=== PATIENT | female | born 1975 | race Caucasian/White ===

== ENCOUNTER 2017-12-16 19:01 | Emergency (ER) | payer MEDICARE, MEDICAID ==
--- NOTE | 2017-12-16 19:31 | ED Physician Chart ---
ED Chief Complaint/HPI - Patient Information Date Seen:: 12/16/17 Time Seen:: 19:29 Chief Complaint:: Weight loss History of Present Illness:: 42 yo obese female with history of schizophrenia was brought from [facility] to ER for evaluation of weight loss for 40 lbs over 2 months. The patient was lying in bed comfortably constantly talking with word salad. Allergies:: Allergies Allergy/AdvReac Type Severity Reaction Status Date / Time No Known Allergies Allergy Verified 12/16/17 19:13 Vitals:: Vital Signs - 8 hr 12/16/17 19:13 Temp 98 F HR 88 RR 18 BP 141/76 O2 Sat % 100 ED Review of Systems - Review of Systems General/Constitutional: No fever Skin: No bruising Head: No headache Eyes: No pain ENT: No nasal drainage Neck: No neck pain Cardio Vascular: No chest pain Pulmonary: No SOB GI: No nausea, No vomiting Musculoskeletal: No bone or joint pain Psychiatric: Prior psych history Neurological: No focal symptoms ED Past Medical History - Past Medical History Past Medical History: HTN, PUD/GERD, Thyroid disorder (Hypothyroidism), Other ( Obesity) Social History: Non Smoker, No Alcohol, No Drug Use Psychiatricy History: Schizophrenia Family Medical History - Family Member Mother History Unknown: Yes ED Physical Exam - Physical Examination General/Constitutional: Awake, Alert Other Gen/Cons comments:: Obese Head: Atraumatic Eyes: PERRL Skin: No ecchymosis ENMT: Nasal exam nl Neck: No nuchal rigidity Respiratory: Clear to Auscultation Cardio Vascular: RRR, No murmur, gallop, rubs, NL S1 S2 GI: No tenderness/rebounding/guarding Extremities: normal strength in all extremities Neuro/Psych: No focal deficits ED Labs/Radiology/EKG Results - Lab Results Results: Laboratory Last Values WBC 6.1 Th/cmm (4.8-10.8) 12/16/17 19:51 RBC 4.87 Mil/cmm (3.80-5.10) 12/16/17 19:51 Hgb 13.7 gm/dL (12-16) 12/16/17 19:51 Hct 42.0 % (41.0-60) 12/16/17 19:51 MCV 86.2 fl (81-100) 12/16/17 19:51 MCH 28.1 pg (27.0-31.0) 12/16/17 19:51 MCHC Differential 32.6 pg (28.0-36.0) 12/16/17 19:51 RDW 15.0 % (11.5-20.0) 12/16/17 19:51 Plt Count 128 Th/cmm (150-400) L 12/16/17 19:51 MPV 12.7 fl 12/16/17 19:51 Neutrophils % 62.0 % (40.0-80.0) 12/16/17 19:51 Lymphocytes % 29.9 % (20.0-50.0) 12/16/17 19:51 Monocytes % 3.6 % (2.0-10.0) 12/16/17 19:51 Eosinophils % 2.4 % (0.0-5.0) 12/16/17 19:51 Basophils % 2.1 % (0.0-2.0) H 12/16/17 19:51 PT 15.8 SECONDS (9.5-11.5) H 12/16/17 19:51 INR 1.55 (0.5-1.4) H 12/16/17 19:51 PTT (Actin FS) 31.2 SECONDS (26.0-38.0) 12/16/17 19:51 Sodium 137 mEq/L (136-145) 12/16/17 19:51 Potassium 4.3 mEq/L (3.5-5.1) 12/16/17 19:51 Chloride 103 mEq/L (98-107) 12/16/17 19:51 Carbon Dioxide 22.3 mEq/L (21.0-31.0) 12/16/17 19:51 Anion Gap 16.0 (7.0-16.0) 12/16/17 19:51 BUN 17 mg/dL (7-25) 12/16/17 19:51 Creatinine 0.9 mg/dL (0.6-1.2) 12/16/17 19:51 Est GFR ( Amer) > 60.0 ml/min (>90) 12/16/17 19:51 Est GFR (Non-Af Amer) > 60.0 ml/min 12/16/17 19:51 BUN/Creatinine Ratio 18.9 12/16/17 19:51 Glucose 94 mg/dL (70-105) 12/16/17 19:51 Calcium 8.9 mg/dL (8.6-10.3) 12/16/17 19:51 Total Bilirubin 0.3 mg/dL (0.3-1.0) 12/16/17 19:51 AST 17 U/L (13-39) 12/16/17 19:51 ALT 9 U/L (7-52) 12/16/17 19:51 Alkaline Phosphatase 51 U/L (34-104) 12/16/17 19:51 Troponin I < 0.01 ng/mL (0.01-0.05) L 12/16/17 19:51 B-Natriuretic Peptide 72.0 pg/mL (5.0-100.0) 12/16/17 19:51 Total Protein 7.5 gm/dL (6.0-8.3) 12/16/17 19:51 Albumin 4.5 gm/dL (3.7-5.3) 12/16/17 19:51 Globulin 3.0 gm/dL 12/16/17 19:51 Albumin/Globulin Ratio 1.5 (1.0-1.8) 12/16/17 19:51 TSH 5.38 uIU/ml (0.34-5.60) 12/16/17 19:51 Urine Source RANDOM 12/16/17 20:41 Urine Color YELLOW 12/16/17 20:41 Urine Clarity CLEAR (CLEAR) 12/16/17 20:41 Urine pH 6.0 (4.6 - 8.0) 12/16/17 20:41 Ur Specific [place] >= 1.030 (1.005-1.030) 12/16/17 20:41 Urine Protein 30 mg/dL (NEGATIVE) H 12/16/17 20:41 Urine Glucose (UA) NEGATIVE mg/dL (NEGATIVE) 12/16/17 20:41 Urine Ketones TRACE mg/dL (NEGATIVE) 12/16/17 20:41 Urine Blood TRACE (NEGATIVE) 12/16/17 20:41 Urine Nitrate NEGATIVE (NEGATIVE) 12/16/17 20:41 Urine Bilirubin NEGATIVE (NEGATIVE) 12/16/17 20:41 Urine Urobilinogen 0.2 E.U./dL (0.2 - 1.0) 12/16/17 20:41 Ur Leukocyte Esterase TRACE (NEGATIVE) H 12/16/17 20:41 Urine RBC 0-2 /hpf (0-5) 12/16/17 20:41 Urine WBC 2-5 /hpf (0-5) 12/16/17 20:41 Ur Epithelial Cells MODERATE /lpf (FEW) 12/16/17 20:41 Urine Bacteria 2+ /hpf (NONE SEEN) H 12/16/17 20:41 Urine Test NEGATIVE 12/16/17 20:41 - Radiology Results Results: CXR: no focal consolidation - EKG Interpretations EKG Time:: 19:45 Rate & Rhythm: 89 bpm, sinus rhythm [place]: normal axis Intervals: normal intervals Comments:: normal EKG ED Assessment - Assessment General Assessment: Urinary tract infection Hypertension Obesity Schizophrenia Assessment/Comments:: CBC, CMP, Trop, BNP, PT/PTT CXR, EKG Bactrim DS PO x 1 D/c to SNF F/u with PCP ED Septic Shock - . Is Septic Shock (SBP<90, OR Lactate>4 mmol\L) present?: No - <6hrs of presentation: Vital Signs: Vital Signs - 8 hr 12/16/17 19:13 Temp 98 F HR 88 RR 18 BP 141/76 O2 Sat % 100 ED Reassessment (Disposition) - Reassessment Reassessment Condition:: Improved - Patient Disposition Discharge/Transfer:: [facility] Operations Manager Care - SNF
[2017-12-16 20:00] LABS: % BASOPHILS 2.1 % (0.0-2.0); % EOSINOPHILS 2.4 % (0.0-5.0); % LYMPHOCYTES 29.9 % (20.0-50.0); % MONOCYTES 3.6 % (2.0-10.0); BASOPHILE ABSOLUTE 0.1 Th/cumm (0-0.2); EOSINOPHILE ABSOLUTE 0.1 Th/cmm (0.1-0.4); HEMOGLOBIN 13.7 gm/dL (12-16); LYMPHOCYTE ABSOLUTE 1.8 Th/cmm (1.5-3.0); MEAN CELL VOLUME 86.2 fl (81-100); MEAN CORPUSCULAR HEMOGLOBIN 28.1 pg (27.0-31.0); MEAN CORPUSCULAR HGB CONC 32.6 pg (28.0-36.0); MEAN PLATELET VOLUME 12.7 fl; MONOCYTE ABSOLUTE 0.2 Th/cmm (0.3-1.0); NEUTROPHILE ABSOLUTE 3.9 Th/cmm (1.8-8.0); PLATELET COUNT 128 Th/cmm (150-400); RED BLOOD COUNT 4.87 Mil/cmm (3.80-5.10); WHITE BLOOD COUNT 6.1 Th/cmm (4.8-10.8)
[2017-12-16 20:13] LABS: INR 1.55 (0.5-1.4); PROTHROMBIN TIME (TEST) 15.8 SECONDS (9.5-11.5)
[2017-12-16 20:20] LABS: ALB/GLOB RATIO 1.5 (1.0-1.8); ALBUMIN 4.5 gm/dL (3.7-5.3); ALKALINE PHOSPHATASE 51 U/L (34-104); BILIRUBIN,TOTAL 0.3 mg/dL (0.3-1.0); BUN - UREA NITROGEN 17 mg/dL (7-25); CALCIUM SERUM 8.9 mg/dL (8.6-10.3); CARBON DIOXIDE 22.3 mEq/L (21.0-31.0); CHLORIDE 103 mEq/L (98-107); CREATININE - SERUM 0.9 mg/dL (0.6-1.2); GFR AFRICAN-AMERICAN > 60.0 ml/min (>90); GFR NON AFRICAN-AMERICAN > 60.0 ml/min; GLUCOSE 94 mg/dL (70-105); POTASSIUM SERUM 4.3 mEq/L (3.5-5.1); SGOT 17 U/L (13-39); SGPT/ALT 9 U/L (7-52); SODIUM SERUM 137 mEq/L (136-145); TOTAL PROTEIN,SERUM 7.5 gm/dL (6.0-8.3)
[2017-12-16 20:49] LABS: URINE SOURCE RANDOM
[2017-12-16 20:52] LABS: URINE BILIRUBIN NEGATIVE (NEGATIVE); URINE BLOOD TRACE (NEGATIVE); URINE GLUCOSE (UA) NEGATIVE (NEGATIVE); URINE KETONE TRACE mg/dL (NEGATIVE); URINE LEUKOCYTE ESTERASE TRACE (NEGATIVE); URINE MICROSCOPIC INDICATED? YES; URINE NITRATE NEGATIVE (NEGATIVE); URINE PROTEIN 30 mg/dL (NEGATIVE); URINE UROBILINOGEN 0.2 E.U./dL (0.2 - 1.0)
[2017-12-16 20:53] LABS: URINE CLARITY CLEAR (CLEAR); URINE COLOR YELLOW
[2017-12-16 20:57] LABS: URINE BACTERIA 2+ /hpf (NONE SEEN); URINE EPITHELIAL CELLS MODERATE /lpf (FEW); URINE RBC 0-2 /hpf (0-5)
[2017-12-16] MEDS ORDERED: Sulfamethoxazole/TMP 800/160mg Tab PO ONE (21:03)
[2017-12-16] MEDS ORDERED: Sulfamethoxazole/TMP 800/160mg Tab ONE (21:05)
--- NOTE | 2017-12-17 08:41 | Diagnostic Imaging Report ---
CHEST X-RAY: AP view INDICATION: Shortness of breath COMPARISON: None FINDINGS: Suboptimal lung volumes are seen with mild increased bilateral perihilar lung markings. There is no focal consolidation or pleural effusions. The heart size is difficult to assess due to patient's low lung volumes. Degenerative changes of the spine are noted. IMPRESSION: Suboptimal lung volumes with increased perihilar lung markings likely due to bronchovascular crowding and atelectatic changes. Faint infiltrate is considered less likely. Short-term follow-up exam with improved inspiration is suggested.
== END 2017-12-16 21:50 ==
LOC: ER 19:01
DX: I10 Essential (primary) hypertension (principal); N39.0 Urinary tract infection, site not specified; E66.9 Obesity, unspecified; F20.9 Schizophrenia, unspecified; K21.9 Gastro-esophageal reflux disease without esophagitis; E07.9 Disorder of thyroid, unspecified
CPT/HCPCS: 36415-UA; 71045-TC; 80053-TC; 81001-TC; 81025-TC; 83880-TC; 84443-TC; 84484-TC; 85025-TC; 85610-TC; 87086-90; 93005